=== PATIENT | female | born 1950 | race Caucasian/White ===

== ENCOUNTER 2025-02-21 13:53 | Emergency (ER) | payer MEDICARE, OTHER ==
[2025-02-21 14:24] LABS: BASOPHILS PERCENT AUTO 0.2 % (0.0-1.0); EOSINOPHILS PERCENT AUTO 0.7 % (1.0-3.0); LYMPHOCYTES PERCENT AUTO 6.3 % (20.5-50.1); MONOCYTES PERCENT AUTO 9.7 % (2-8); NEUTROPHILS PERCENT AUTO 83.1 % (42.2-75.2); PLATELET COUNT,PLT 261 10^3/uL (150-450); RED BLOOD CELL COUNT 3.70 10^6/uL (4.2-5.4); WHITE BLOOD CELL COUNT,WBC 5.9 10^3/uL (5.0-10.0)
[2025-02-21] MEDS: Iopamidol 755 Mg/ML 100 ML Bottle IVPUSH ONE (14:34)
[2025-02-21 14:46] LABS: A/G RATIO 0.64; ALANINE AMINOTRANSFERASE,ALT 28.0 U/L (14-59); ASPARTATE AMNIOTRANSFERASE,AST 35.0 U/L (15-37); BILIRUBIN TOTAL 0.4 mg/dL (0.2-1.0); BLOOD UREA NITROGEN,BUN 20.0 mg/dL (7-18); CARBON DIOXIDE,CO2 28.0 mmol/L (21-32); CHLORIDE,CL 97.0 mmol/L (98-107); CREATININE 1.0 mg/dL (0.55-1.02); EST CRCL DRUG DOSING (CG) 41.45 mL/min; ESTIMATED GFR 59.0 mL/min (>=60); GLUCOSE RANDOM 155.0 mg/dL (70-99); POTASSIUM,K 4.1 mmol/L (3.5-5.1); PROTEIN TOTAL,TP 6.9 g/dL (6.4-8.2); SODIUM,NA 131.0 mmol/L (136-145)
[2025-02-21 14:47] LABS: INR 1.1 (0.9-1.2)
[2025-02-21 14:49] LABS: B-TYPE NATRIURETIC PEPTIDE,BNP 1360.0 pg/ml (0-100)
== END 2025-02-21 16:57 ==
LOC: DL.ED 13:53
DX: J90 Pleural effusion, not elsewhere classified (principal)
CPT/HCPCS: 36415; 71275; 80053; 83880; 84484; 85025; 85610; 93005; 93010; 99285; Q9967